=== PATIENT | female | born 1940 | race Hispanic/Latino ===

== ENCOUNTER → 2018-10-12 | Outpatient (CLI) | payer MEDICARE | END | disposition home or self-care (01) | LOC: SHCH 13:14 | PROVIDERS: ATTEND Internal Medicine Cardiovascular Disease | DX: I08.0 Rheumatic disorders of both mitral and aortic valves (principal) | CPT/HCPCS: 93306 ==

== ENCOUNTER → 2018-10-19 | Outpatient (CLI) | payer MEDICARE ==
[~2018-10-19] VITALS: Ht 152.4 cm; Wt 73.9 kg
[~2018-10-19] MED LIST: REGADENOSON 0.4 MG/5 ML PF SYG IVP SCH
== END | disposition home or self-care (01) ==
LOC: SHCH 08:17
PROVIDERS: ATTEND Internal Medicine Cardiovascular Disease
DX: I25.9 Chronic ischemic heart disease, unspecified (principal)
CPT/HCPCS: 78452; 93017; 96374; A9500 ×2; J2785

== ENCOUNTER → 2019-10-11 | Outpatient (CLI) | payer MEDICARE | END | disposition home or self-care (01) | LOC: SHCH 08:33 | PROVIDERS: ATTEND Internal Medicine Cardiovascular Disease | DX: I10 Essential (primary) hypertension (principal) | CPT/HCPCS: 93306 ==

== ENCOUNTER → 2020-04-25 | Outpatient (CLI) | payer OTHER, MEDICARE | END | disposition home or self-care (01) | LOC: RAH 09:18 | PROVIDERS: ATTEND Family Medicine | DX: N28.1 Cyst of kidney, acquired (principal); Z90.49 Acquired absence of other specified parts of digestive tract | CPT/HCPCS: 76700 ==

== ENCOUNTER → 2020-05-03 | Outpatient (CLI) | payer OTHER, MEDICARE ==
[~2020-05-03] MED LIST changes: +AMLO-258 PO; +ATOR20TA65 PO; +ISOS30TA11 PO; +LEVO25TA54 PO; +LOSA100T58 PO; +METO25 PO; -REGADENOSON 0.4 MG/5 ML PF SYG IVP SCH
== END | disposition home or self-care (01) ==
LOC: SHCH 09:32
PROVIDERS: ATTEND Internal Medicine Cardiovascular Disease
DX: R09.89 Other specified symptoms and signs involving the circulatory and respiratory systems (principal)
CPT/HCPCS: 93880

== ENCOUNTER 2020-05-04 20:40 | Observation (INO) | payer OTHER, MEDICARE ==
[~2020-05-04] VITALS: Ht 152.4 cm; Wt 69.0 kg
[2020-05-04 20:56] LABS: BASOPHILS % (AUTO) 0.4 % (0.0-5.0); EOSINOPHILS % (AUTO) 1.4 % (0.0-8.0); HEMATOCRIT 34.8 % (36-48); LYMPHOCYTES % (AUTO) 40.1 % (21.0-51.0); MEAN CORPUSCULAR HEMOGLOBIN 30.1 pg (27.0-33.0); MEAN CORPUSCULAR HGB CONC 32.8 g/dL (32.0-36.0); MEAN CORPUSCULAR VOLUME 91.8 fL (79-99); MONOCYTES % (AUTO) 8.3 % (3.0-13.0); NEUTROPHILS % (AUTO) 49.4 % (40.0-77.0); PLATELET COUNT (AUTO) 306 K/uL (130-400); RED BLOOD CELL COUNT(AUTO) 3.79 MIL/uL (4.00-5.50); RED CELL DISTRIBUTION WIDTH 12.1 % (11.0-15.5); WHITE BLOOD COUNT (AUTO) 9.3 K/uL (4.8-10.8)
[2020-05-04 21:08] LABS: POTASSIUM 3.2 mmol/L (3.5-5.1)
[2020-05-04 21:10] LABS: INR 0.9 (0.85-1.15); PARTIAL THROMBOPLASTIN TIME 23.4 SEC (26.3-35.5); PROTHROMBIN TIME 9.8 SEC (9.6-11.6)
[2020-05-04 21:12] LABS: ALBUMIN 3.8 g/dL (3.5-5.0); BILIRUBIN,TOTAL 0.2 mg/dL (0.2-1.0)
[2020-05-04 21:42] LABS: APPEARANCE,URINE Clear (CLEAR); BILIRUBIN,URINE Negative (NEGATIVE); COLOR,URINE Yellow (YELLOW); GLUCOSE, URINE (UA) Negative (NEGATIVE); KETONES,URINE Negative (NEGATIVE); LEUKOCYTE ESTERASE ,URINE Trace (NEGATIVE); NITRATE,URINE Negative (NEGATIVE); OCCULT BLOOD,URINE Small (NEGATIVE); PROTEIN,URINE Negative (NEGATIVE); UROBILINOGEN,URINE 0.2 mg/dL (0.2-1.0)
[2020-05-04 22:00] LABS: RBC,URINE 0-1 /HPF (0-1)
[2020-05-04 22:01] LABS: BACTERIA,URINE Rare /HPF (None Seen); SQUAMOUS EPITHELIAL CELL,UR Rare /HPF (0-2)
[2020-05-04] MEDS ORDERED: POTASSIUM CHLORIDE 20 MEQ ERTAB PO ONE (22:48)
[2020-05-04] MEDS ORDERED: DiphenhydrAMINE HCL 50 MG/ML VIAL IV PRN (23:15)
[2020-05-04] MEDS ORDERED: ONDANSETRON HCL 4 MG/2 ML VIAL IV PRN (23:15)
[2020-05-04] MEDS ORDERED: ZOLPIDEM TARTRATE 5 MG TAB PO PRN (23:15)
[2020-05-04] MEDS ORDERED: MAG HYDROX/AL HYDROX/SIMETH ES 30 ML SUSP UDCUP PO PRN (23:15)
[2020-05-04] MEDS ORDERED: DIPHENHYDRAMINE HCL 25 MG CAPSULE PO PRN (23:15)
[2020-05-04] MEDS ORDERED: LACTULOSE 20 GM/30 ML UDCUP PO PRN (23:15)
[2020-05-04] MEDS ORDERED: HYDRALAZINE HCL 20 MG/ML VIAL IV PRN (23:15)
[2020-05-04] MEDS ORDERED: GUAIFENESIN-DM 200/20 MG 10 ML PO PRN (23:15)
[2020-05-04] MEDS ORDERED: ACETAMINOPHEN 325 MG TAB PO PRN ×2 (23:15)
[2020-05-04] MEDS ORDERED: ACETAMINOPHEN-CODEINE 300/30MG TAB PO PRN ×2 (23:15)
[2020-05-04] MEDS ORDERED: NITROGLYCERIN 0.4 MG SL TAB SL PRN (23:15)
[2020-05-04] MEDS ORDERED: POTASSIUM CHLORIDE 20 MEQ ERTAB PO PRN (23:30)
[2020-05-04] MEDS ORDERED: LIDOCAINE HCL-MPF 1% 2ML VIAL IV PRN (23:30)
[2020-05-04] MEDS ORDERED: POTASSIUM CHLORIDE 20MEQ/100ML 100 ML IV PRN (23:30)
[2020-05-05 00:22] LABS: TROPONIN I 0.08 ng/mL (0.00-0.06)
[2020-05-05 07:21] LABS: TROPONIN I 0.07 ng/mL (0.00-0.06)
[2020-05-05] MEDS ORDERED: ENOXAPARIN SODIUM 30 MG/0.3 ML SQ ONE (07:51)
[2020-05-05] MEDS ORDERED: FAMOTIDINE/PF 20 MG/2 ML VIAL IV ONE (07:52)
[2020-05-05] MEDS ORDERED: METO25 PO (08:46)
[2020-05-05] MEDS ORDERED: AMLO-258 PO (08:46)
[2020-05-05] MEDS ORDERED: LEVO25TA54 PO (08:46)
[2020-05-05] MEDS ORDERED: LOSA100T58 PO (08:46)
[2020-05-05] MEDS ORDERED: ATOR20TA65 PO (08:46)
[2020-05-05] MEDS ORDERED: ISOS30TA11 PO (08:46)
[2020-05-05] MEDS ORDERED: FAMOTIDINE/PF 20 MG/2 ML VIAL IV SCH (09:00)
[2020-05-05] MEDS ORDERED: ENOXAPARIN SODIUM 30 MG/0.3 ML SQ SCH (09:00)
--- NOTE | 2020-05-05 09:55 | NUR ---
ADMISSION RECEIVED PT FROM ER, AMBULATING FROM [facility], GAIT STEADY AND STRONG WITH STAND BY ASSIST, PT DENIES PAIN, SOB, NAUSEA, DOES NOT APPEAR TO BE IN ANY DISTRESS NOR ANY NEURO DEFICITS PRESENT. CALL LIGHT WITHIN REACH.
[2020-05-05 09:56] VITALS: BP 133/86
[2020-05-05] MEDS: POTASSIUM CHLORIDE 10% ELIXIR 20 MEQ/15 ML UDCUP PO PRN ×3 (11:18→15:00)
[2020-05-05 12:00] VITALS: BP 144/70
[2020-05-05] MEDS ORDERED: LOSARTAN 100 MG TABLET PO SCH (12:00)
--- NOTE | 2020-05-05 15:00 | NUR ---
DISCHARGE INSTRUCTIONS GIVEN, PIV REMOVED AND INTACT,DISCHARGED HOME TO FAMILY VEHICLE VIA WHEELCHAIR.
[2020-05-05] MEDS ORDERED: METOPROLOL TARTRATE 25 MG TAB PO SCH (21:00)
[2020-05-05] MEDS ORDERED: ATORVASTATIN CALCIUM 20 MG TABLET PO SCH (21:00)
[2020-05-06] MEDS ORDERED: ISOSORBIDE MONO 30MG TAB SR PO SCH (09:00)
[2020-05-06] MEDS ORDERED: ASPIRIN 81MG TAB.CHEW PO SCH (09:00)
== END 2020-05-05 15:17 | disposition home or self-care (01) ==
LOC: EDH 20:40 → EDHIP 23:10 → 4DH 05-05 08:54
PROVIDERS: ADMIT Family Medicine; ATTEND Family Medicine
DX: R07.9 Chest pain, unspecified (principal); Z20.828 Contact with and (suspected) exposure to other viral communicable diseases; E87.6 Hypokalemia; E78.5 Hyperlipidemia, unspecified; E03.9 Hypothyroidism, unspecified; I10 Essential (primary) hypertension; D64.9 Anemia, unspecified; K59.00 Constipation, unspecified; I25.10 Atherosclerotic heart disease of native coronary artery without angina pectoris; Z95.1 Presence of aortocoronary bypass graft
CPT/HCPCS: 36415 ×2; 71045; 80053; 81001; 82550 ×3; 83605; 83735; 83874 ×2; 84100; 84484 ×3; 85025; 85610; 85730; 87040; 87426; 87804 ×2; 93005; 99285; G0378 ×14; J1650; J3490; U0003

== ENCOUNTER → 2020-10-10 | Outpatient (CLI) | payer OTHER, MEDICARE ==
[~2020-10-10] MED LIST changes: -AMLO-258 PO; -ISOS30TA11 PO
== END | disposition home or self-care (01) ==
LOC: SHCH 09:47
PROVIDERS: ATTEND Internal Medicine Cardiovascular Disease
DX: I08.3 Combined rheumatic disorders of mitral, aortic and tricuspid valves (principal); I27.20 Pulmonary hypertension, unspecified; R55 Syncope and collapse; E11.9 Type 2 diabetes mellitus without complications
CPT/HCPCS: 93306; 93356

== ENCOUNTER 2021-03-10 13:39 | Observation (INO) | payer OTHER, MEDICARE ==
[~2021-03-10] VITALS: Ht 152.4 cm; Wt 70.3 kg
[2021-03-10 14:28] LABS: ALBUMIN 3.7 g/dL (3.5-5.0); BILIRUBIN,TOTAL 0.4 mg/dL (0.2-1.0); CREATININE 0.9 mg/dL (0.5-1.5); MAGNESIUM 1.6 mg/dL (1.80-2.40); POTASSIUM 3.8 mmol/L (3.5-5.1); TOTAL PROTEIN, SERUM 7.3 g/dL (6.0-8.3)
[2021-03-10] MEDS ORDERED: ASPIRIN 325MG TAB PO ONE (14:30)
[2021-03-10] MEDS ORDERED: NITROGLYCERIN 1GM OINT 1 INCH/1GM TD ONE (14:30)
[2021-03-10] MEDS ORDERED: NITROGLYCERIN 0.4 MG SL TAB SL PRN (14:30)
[2021-03-10] MEDS ORDERED: POTASSIUM CHLORIDE 20MEQ/100ML 100 ML IV PRN ×2 (15:30)
[2021-03-10] MEDS ORDERED: POTASSIUM CHLORIDE 10% ELIXIR 20 MEQ/15 ML UDCUP PO PRN (15:30)
[2021-03-10] MEDS ORDERED: ONDANSETRON 4MG INJ IVP PRN (15:30)
[2021-03-10] MEDS ORDERED: LIDOCAINE HCL-MPF 1% 2ML VIAL IV PRN ×2 (15:30)
[2021-03-10] MEDS ORDERED: GLUCAGON 1MG KIT 1 MG ML IM PRN (15:30)
[2021-03-10] MEDS ORDERED: MAGNESIUM 2GM PREMIX 50ML 50 ML IV PRN (15:30)
[2021-03-10] MEDS ORDERED: ACETAMINOPHEN 325 MG TAB PO PRN (15:30)
[2021-03-10] MEDS ORDERED: MORPHINE 2 MG SYG IVP PRN (15:30)
[2021-03-10] MEDS ORDERED: DEXTROSE 50%-WATER 50 ML DISP.SYRIN IV PRN (15:30)
[2021-03-10] MEDS: NITROGLYCERIN 1GM OINT 1 INCH/1GM TD SCH ×2 (15:30→22:58)
[2021-03-10 16:16] LABS: HEMATOCRIT 32.6 % (36-48); MEAN CORPUSCULAR HEMOGLOBIN 28.5 pg (27.0-33.0); MEAN CORPUSCULAR HGB CONC 32.5 g/dL (32.0-36.0); MEAN CORPUSCULAR VOLUME 87.6 fL (79-99); RED BLOOD CELL COUNT(AUTO) 3.72 MIL/uL (4.00-5.50); RED CELL DISTRIBUTION WIDTH 13.2 % (11.0-15.5); WHITE BLOOD COUNT (AUTO) 10.1 K/uL (4.8-10.8)
[2021-03-10] MEDS: FAMOTIDINE 20MG VIAL IV SCH (16:20)
[2021-03-10 16:30] LABS: HEMOGLOBIN A1C 6.1 % (4.0-6.0)
[2021-03-10] MEDS: INSULIN HUMULIN R 100 UNIT/ML 3ML SQ SCH ×2 (16:30→21:00)
[2021-03-10 17:11] VITALS: BP 140/55
[2021-03-10] MEDS ORDERED: METF-444 PO (19:31)
[2021-03-10] MEDS ORDERED: AMLO-257 PO (19:31)
[2021-03-10] MEDS ORDERED: ASPI-1005 PO (19:31)
[2021-03-10 20:22] VITALS: BP 136/52
[2021-03-10] MEDS ORDERED: ATORVASTATIN 40 MG TABLET PO SCH (21:00)
[2021-03-10] MEDS: ENOXAPARIN SODIUM 80 MG/0.8 ML SQ SCH (21:22)
[2021-03-10] MEDS: METOPROLOL TARTRATE 25 MG TAB PO SCH (21:22)
[2021-03-10 23:50] VITALS: BP 145/61
[2021-03-11 02:26] LABS: HEMATOCRIT 31.7 % (36-48); MEAN CORPUSCULAR HEMOGLOBIN 28.6 pg (27.0-33.0); MEAN CORPUSCULAR HGB CONC 32.8 g/dL (32.0-36.0); MEAN CORPUSCULAR VOLUME 87.1 fL (79-99); RED BLOOD CELL COUNT(AUTO) 3.64 MIL/uL (4.00-5.50); RED CELL DISTRIBUTION WIDTH 13.1 % (11.0-15.5); WHITE BLOOD COUNT (AUTO) 8.5 K/uL (4.8-10.8)
[2021-03-11 02:53] LABS: ALBUMIN 3.6 g/dL (3.5-5.0); BILIRUBIN,TOTAL 0.4 mg/dL (0.2-1.0); CREATININE 0.6 mg/dL (0.5-1.5); POTASSIUM 3.4 mmol/L (3.5-5.1); TOTAL PROTEIN, SERUM 7.2 g/dL (6.0-8.3)
[2021-03-11 03:55] VITALS: BP 139/62
[2021-03-11] MEDS: INSULIN HUMULIN R 100 UNIT/ML 3ML SQ SCH ×2 (05:49→11:30)
[2021-03-11 08:00] VITALS: BP 148/68
[2021-03-11] MEDS ORDERED: ASPIRIN 81 MG EC TAB PO SCH (09:00)
[2021-03-11] MEDS: METOPROLOL TARTRATE 25 MG TAB PO SCH (09:58)
[2021-03-11] MEDS: KCL 20 MEQ ERTAB PO PRN ×2 (09:58→15:28)
[2021-03-11] MEDS: NITROGLYCERIN 1GM OINT 1 INCH/1GM TD SCH (09:58)
[2021-03-11] MEDS: FAMOTIDINE 20MG VIAL IV SCH (09:58)
[2021-03-11] MEDS: ENOXAPARIN SODIUM 80 MG/0.8 ML SQ SCH (09:59)
[2021-03-11 11:30] VITALS: BP 146/71
[2021-03-11] MEDS ORDERED: METOPROLOL TARTRATE 25 MG TAB PO SCH (21:00)
== END 2021-03-11 15:30 | disposition home or self-care (01) ==
LOC: EDH 13:39 → EDHIP 15:22 → 4CH 16:46
PROVIDERS: ADMIT Internal Medicine Critical Care Medicine; ATTEND Internal Medicine Critical Care Medicine
DX: R07.89 Other chest pain (principal); I25.110 Atherosclerotic heart disease of native coronary artery with unstable angina pectoris; I24.9 Acute ischemic heart disease, unspecified; I35.0 Nonrheumatic aortic (valve) stenosis; E11.9 Type 2 diabetes mellitus without complications; I10 Essential (primary) hypertension; F41.9 Anxiety disorder, unspecified; E78.5 Hyperlipidemia, unspecified; E89.0 Postprocedural hypothyroidism; E66.9 Obesity, unspecified; E78.00 Pure hypercholesterolemia, unspecified; Z68.30 Body mass index [BMI] 30.0-30.9, adult; Z79.899 Other long term (current) drug therapy; Z95.1 Presence of aortocoronary bypass graft; Z79.82 Long term (current) use of aspirin; Z79.84 Long term (current) use of oral hypoglycemic drugs
CPT/HCPCS: 36415 ×2; 71045; 80053 ×2; 80061; 82948 ×4; 83036; 83735 ×2; 83880; 84443; 84484 ×3; 85027 ×2; 85378; 86140; 93005; 96365; 96372 ×2; 96375; 96376; 99285; G0378 ×24; J1650 ×2; J3475; J3490 ×2; 96374

== ENCOUNTER 2021-05-08 23:11 | Inpatient (IN) | payer OTHER, MEDICARE ==
[~2021-05-08] VITALS: Ht 157.5 cm; Wt 67.9 kg
[~2021-05-08 23:11] MED LIST changes: +AMLO-257 PO; +ASPI-1005 PO; +METF-444 PO
[2021-05-08 23:50] LABS: ABG OXYGEN SATURATION 32.8 % (95.0-99.0); BASE EXCESS,VENOUS BLOOD GAS 0.1 (-2.0-3.0); HCO3,VENOUS BLOOD GAS 24.4 (21.0-28.0); PCO2,VENOUS BLOOD GAS 39 (32-45); PH,VENOUS BLOOD GAS 7.418 (7.350-7.450)
[2021-05-09] MEDS ORDERED: KETOROLAC 15MG/ML VIAL (15MG/ML) IV ONE
[2021-05-09] MEDS ORDERED: 0.9% NACL 500ML IV.SOLN 456 ML IV ONE
[2021-05-09 00:17] LABS: CREATININE 0.8 mg/dL (0.5-1.5); POTASSIUM 3.7 mmol/L (3.5-5.1)
[2021-05-09 00:22] LABS: ALBUMIN 3.9 g/dL (3.5-5.0); BILIRUBIN,TOTAL 0.5 mg/dL (0.2-1.0)
[2021-05-09 00:35] LABS: BASOPHILS % (AUTO) 0.4 % (0.0-5.0); EOSINOPHILS % (AUTO) 0.2 % (0.0-8.0); HEMATOCRIT 32.2 % (36-48); LYMPHOCYTES % (AUTO) 6.5 % (21.0-51.0); MEAN CORPUSCULAR HGB CONC 33.2 g/dL (32.0-36.0); MEAN CORPUSCULAR VOLUME 87.3 fL (79-99); NEUTROPHILS % (AUTO) 86.6 % (40.0-77.0); PLATELET COUNT (AUTO) 291 K/uL (130-400); RED BLOOD CELL COUNT(AUTO) 3.69 MIL/uL (4.00-5.50); RED CELL DISTRIBUTION WIDTH 13.5 % (11.0-15.5); WHITE BLOOD COUNT (AUTO) 10.3 K/uL (4.8-10.8)
[2021-05-09 01:08] LABS: APPEARANCE,URINE Clear (CLEAR); BILIRUBIN,URINE Negative (NEGATIVE); COLOR,URINE Yellow (YELLOW); GLUCOSE, URINE (UA) Negative (NEGATIVE); KETONES,URINE 15 mg/dL (NEGATIVE); LEUKOCYTE ESTERASE ,URINE Negative (NEGATIVE); NITRATE,URINE Negative (NEGATIVE); OCCULT BLOOD,URINE Moderate (NEGATIVE); PH,URINE 5.5 (5.0-8.0); PROTEIN,URINE POS 1+ mg/dL (NEGATIVE); UROBILINOGEN,URINE 0.2 mg/dL (0.2-1.0)
[2021-05-09 01:29] LABS: BACTERIA,URINE None Seen /HPF (None Seen); YEAST,URINE BUDDING Few /HPF (None Seen)
[2021-05-09 01:30] LABS: SQUAMOUS EPITHELIAL CELL,UR Few /HPF (0-2)
[2021-05-09] MEDS ORDERED: ZOSYN 3.375GM +NS 50ML IV ONE (02:00)
[2021-05-09] MEDS ORDERED: HYDRALAZINE 20MG/ML VIAL IV PRN (02:30)
[2021-05-09] MEDS ORDERED: NITROGLYCERIN 0.4 MG SL TAB SL PRN (02:30)
[2021-05-09] MEDS ORDERED: ACETAMINOPHEN WITH CODEINE 1 TAB TAB PO PRN (02:30)
[2021-05-09] MEDS ORDERED: ONDANSETRON 4MG INJ IV PRN (02:30)
[2021-05-09] MEDS ORDERED: ACETAMINOPHEN 325 MG TAB PO PRN ×2 (02:30)
[2021-05-09] MEDS ORDERED: GUAIFENESIN-DM 200/20 MG 10 ML PO PRN (02:30)
[2021-05-09] MEDS ORDERED: DIPHENHYDRAMINE HCL 25 MG CAPSULE PO PRN (02:30)
[2021-05-09] MEDS: 0.9%NACL 1000ML 1,000 ML IV SCH ×3 (02:39→23:49)
[2021-05-09] MEDS ORDERED: ZOSYN 3.375GM+NS 50ML 50 ML IV SCH (05:00)
[2021-05-09] MEDS: INSULIN HUMULIN R 100 UNIT/ML 3ML SQ SCH ×4 (07:29→20:30)
[2021-05-09] MEDS: ENOXAPARIN SODIUM 30 MG/0.3 ML SQ SCH (09:37)
[2021-05-09] MEDS: ZOSYN 3.375GM +NS 50ML IV SCH ×2 (12:56→20:30)
[2021-05-09] MEDS: AMLODIPINE 5 MG TAB PO SCH (13:12)
[2021-05-09] MEDS: LOSARTAN 100 MG TABLET PO SCH (13:13)
[2021-05-09] MEDS: ASPIRIN 81MG CHEW TAB PO SCH (13:59)
[2021-05-09] MEDS ORDERED: 0.9%NACL 100ML 100 ML ONE (20:24)
[2021-05-09] MEDS: METOPROLOL TARTRATE 25 MG TAB PO SCH (20:30)
[2021-05-09] MEDS: ATORVASTATIN 20 MG TABLET PO SCH (20:30)
[2021-05-10] MEDS: ZOSYN 3.375GM +NS 50ML IV SCH ×3 (05:05→20:44)
[2021-05-10 05:36] LABS: BASOPHILS % (AUTO) 0.5 % (0.0-5.0); EOSINOPHILS % (AUTO) 0.5 % (0.0-8.0); HEMATOCRIT 31.1 % (36-48); LYMPHOCYTES % (AUTO) 22.4 % (21.0-51.0); MEAN CORPUSCULAR HEMOGLOBIN 28.3 pg (27.0-33.0); MEAN CORPUSCULAR HGB CONC 32.8 g/dL (32.0-36.0); MEAN CORPUSCULAR VOLUME 86.1 fL (79-99); MONOCYTES % (AUTO) 12.6 % (3.0-13.0); NEUTROPHILS % (AUTO) 63.5 % (40.0-77.0); PLATELET COUNT (AUTO) 238 K/uL (130-400); RED BLOOD CELL COUNT(AUTO) 3.61 MIL/uL (4.00-5.50); RED CELL DISTRIBUTION WIDTH 13.6 % (11.0-15.5); WHITE BLOOD COUNT (AUTO) 5.9 K/uL (4.8-10.8)
[2021-05-10 05:44] LABS: CREATININE 0.8 mg/dL (0.5-1.5); POTASSIUM 2.9 mmol/L (3.5-5.1)
[2021-05-10 05:55] LABS: B-TYPE NATRIURETIC PEPTIDE 81 pg/mL (0-100)
[2021-05-10] MEDS ORDERED: POTASSIUM CHLORIDE 10% ELIXIR 20 MEQ/15 ML UDCUP PO PRN (06:30)
[2021-05-10] MEDS ORDERED: MAGNESIUM 2GM PREMIX 50ML 50 ML IV PRN (06:30)
[2021-05-10] MEDS ORDERED: LIDOCAINE HCL-MPF 1% 2ML VIAL IV PRN (06:30)
[2021-05-10] MEDS: INSULIN HUMULIN R 100 UNIT/ML 3ML SQ SCH ×4 (07:30→20:09)
[2021-05-10 07:52] VITALS: BP 129/61
[2021-05-10] MEDS: POTASSIUM CHLORIDE 20MEQ/100ML 100 ML IV PRN ×2 (07:57→13:05)
[2021-05-10] MEDS: 0.9%NACL 1000ML 1,000 ML IV SCH ×2 (08:30→18:08)
[2021-05-10] MEDS: AMLODIPINE 5 MG TAB PO SCH (09:00)
[2021-05-10] MEDS: LOSARTAN 100 MG TABLET PO SCH (09:00)
[2021-05-10] MEDS: ASPIRIN 81MG CHEW TAB PO SCH (09:00)
[2021-05-10] MEDS: METOPROLOL TARTRATE 25 MG TAB PO SCH ×2 (09:00→20:44)
[2021-05-10 12:00] VITALS: BP 119/66
[2021-05-10] MEDS ORDERED: REGADENOSON 0.4 MG/5 ML PF SYG IVP SCH (12:00)
[2021-05-10 17:00] VITALS: BP 151/73
[2021-05-10] MEDS: ENOXAPARIN SODIUM 30 MG/0.3 ML SQ SCH (17:06)
[2021-05-10] MEDS: KCL 20 MEQ ERTAB PO PRN ×2 (17:56→20:45)
[2021-05-10 20:23] VITALS: BP 139/63
[2021-05-10] MEDS: ATORVASTATIN 20 MG TABLET PO SCH (20:44)
[2021-05-11 00:13] VITALS: BP 125/43
[2021-05-11 04:39] VITALS: BP 120/54
[2021-05-11] MEDS: ZOSYN 3.375GM +NS 50ML IV SCH ×3 (05:26→20:39)
[2021-05-11] MEDS: 0.9%NACL 1000ML 1,000 ML IV SCH ×2 (05:26→14:30)
[2021-05-11 05:45] LABS: HEMATOCRIT 33.2 % (36-48); MEAN CORPUSCULAR HEMOGLOBIN 27.8 pg (27.0-33.0); MEAN CORPUSCULAR VOLUME 89.5 fL (79-99); PLATELET COUNT (AUTO) 263 K/uL (130-400); RED BLOOD CELL COUNT(AUTO) 3.71 MIL/uL (4.00-5.50); RED CELL DISTRIBUTION WIDTH 13.7 % (11.0-15.5); WHITE BLOOD COUNT (AUTO) 5.5 K/uL (4.8-10.8)
[2021-05-11 06:11] LABS: CREATININE 0.7 mg/dL (0.5-1.5); POTASSIUM 3.7 mmol/L (3.5-5.1)
[2021-05-11] MEDS: INSULIN HUMULIN R 100 UNIT/ML 3ML SQ SCH ×4 (06:45→20:16)
[2021-05-11 07:40] VITALS: BP 111/60
[2021-05-11] MEDS: ASPIRIN 81MG CHEW TAB PO SCH (09:58)
[2021-05-11] MEDS: AMLODIPINE 5 MG TAB PO SCH (09:59)
[2021-05-11] MEDS: LOSARTAN 100 MG TABLET PO SCH (09:59)
[2021-05-11] MEDS: METOPROLOL TARTRATE 25 MG TAB PO SCH ×2 (09:59→20:39)
[2021-05-11] MEDS: ENOXAPARIN SODIUM 30 MG/0.3 ML SQ SCH (10:01)
[2021-05-11 11:45] VITALS: BP 131/62
[2021-05-11] MEDS: KCL 20 MEQ ERTAB PO PRN (13:53)
[2021-05-11 16:04] VITALS: BP 127/63
[2021-05-11 20:00] VITALS: BP 148/63
[2021-05-11] MEDS: ATORVASTATIN 20 MG TABLET PO SCH (20:39)
[2021-05-12] VITALS: BP 117/60
[2021-05-12] MEDS: 0.9%NACL 1000ML 1,000 ML IV SCH ×2 (01:12→12:50)
[2021-05-12 04:00] VITALS: BP 102/61
[2021-05-12] MEDS: ZOSYN 3.375GM +NS 50ML IV SCH ×2 (05:01→12:49)
[2021-05-12 05:37] LABS: HEMATOCRIT 28.7 % (36-48); MEAN CORPUSCULAR HEMOGLOBIN 27.8 pg (27.0-33.0); MEAN CORPUSCULAR HGB CONC 31.7 g/dL (32.0-36.0); MEAN CORPUSCULAR VOLUME 87.8 fL (79-99); RED BLOOD CELL COUNT(AUTO) 3.27 MIL/uL (4.00-5.50); RED CELL DISTRIBUTION WIDTH 13.7 % (11.0-15.5); WHITE BLOOD COUNT (AUTO) 4.4 K/uL (4.8-10.8)
[2021-05-12 05:46] LABS: CREATININE 0.6 mg/dL (0.5-1.5); POTASSIUM 3.6 mmol/L (3.5-5.1)
[2021-05-12] MEDS: INSULIN HUMULIN R 100 UNIT/ML 3ML SQ SCH ×3 (07:07→16:30)
[2021-05-12 08:00] VITALS: BP 172/76
[2021-05-12] MEDS: AMLODIPINE 5 MG TAB PO SCH (10:11)
[2021-05-12] MEDS: ASPIRIN 81MG CHEW TAB PO SCH (10:11)
[2021-05-12] MEDS: LOSARTAN 100 MG TABLET PO SCH (10:11)
[2021-05-12] MEDS: METOPROLOL TARTRATE 25 MG TAB PO SCH (10:11)
[2021-05-12] MEDS: ENOXAPARIN SODIUM 30 MG/0.3 ML SQ SCH (10:13)
[2021-05-12] MEDS: KCL 20 MEQ ERTAB PO PRN (10:19)
[2021-05-12 13:05] VITALS: BP 147/62
[2021-05-12] MEDS ORDERED: AMOX-426 PO (15:34)
[2021-05-12] MEDS ORDERED: PERID15L MM (15:35)
[2021-05-12 17:35] VITALS: BP 147/63
== END 2021-05-12 20:30 | disposition home or self-care (01) | DRG 872 ==
LOC: EDH 23:11 → EDHIP 05-09 02:14 → OBSVTOIN 05-09 02:14 → 3DH 05-10 05:38
PROVIDERS: ADMIT Internal Medicine; ATTEND Internal Medicine
DX: A41.9 Sepsis, unspecified organism (principal); N39.0 Urinary tract infection, site not specified; K04.7 Periapical abscess without sinus; I35.0 Nonrheumatic aortic (valve) stenosis; I10 Essential (primary) hypertension; E78.5 Hyperlipidemia, unspecified; E66.9 Obesity, unspecified; Z20.822 Contact with and (suspected) exposure to COVID-19; E11.9 Type 2 diabetes mellitus without complications; I25.10 Atherosclerotic heart disease of native coronary artery without angina pectoris; Z60.2 Problems related to living alone; K00.7 Teething syndrome; E78.00 Pure hypercholesterolemia, unspecified; R68.84 Jaw pain; M54.2 Cervicalgia; Z68.27 Body mass index [BMI] 27.0-27.9, adult; Z95.1 Presence of aortocoronary bypass graft; Z79.82 Long term (current) use of aspirin; Z79.84 Long term (current) use of oral hypoglycemic drugs; Z79.899 Other long term (current) drug therapy; Z82.49 Family history of ischemic heart disease and other diseases of the circulatory system
CPT/HCPCS: 36415; 36600; 70486; 71045; 74176; 78452; 80048; 80053; 81001; 82010; 82550; 82803; 82948; 83605; 83690; 83874; 83880; 84484; 85025; 85027; 87040; 87088; 87635; 87804; 93005; 93017; 93306; 93356; 96374; A9500; C9803; G0378; J1650; J1815; J1885; J2543; J2785; J3480; J3490; J7030; J7040

== ENCOUNTER 2021-10-16 11:05 | Emergency (ER) | payer OTHER, MEDICARE ==
[~2021-10-16] VITALS: Ht 152.4 cm; Wt 63.5 kg
[~2021-10-16 11:05] MED LIST changes: +AMOX-426 PO; -LEVO25TA54 PO; +PERID15L MM
[2021-10-16 11:33] LABS: BASOPHILS % (AUTO) 0.8 % (0.0-5.0); EOSINOPHILS % (AUTO) 0.8 % (0.0-8.0); HEMATOCRIT 29.4 % (36-48); LYMPHOCYTES % (AUTO) 19.4 % (21.0-51.0); MEAN CORPUSCULAR HEMOGLOBIN 22.6 pg (27.0-33.0); MEAN CORPUSCULAR HGB CONC 29.6 g/dL (32.0-36.0); MEAN CORPUSCULAR VOLUME 76.4 fL (79-99); MONOCYTES % (AUTO) 7.9 % (3.0-13.0); NEUTROPHILS % (AUTO) 70.7 % (40.0-77.0); PLATELET COUNT (AUTO) 339 K/uL (130-400); RED BLOOD CELL COUNT(AUTO) 3.85 MIL/uL (4.00-5.50); RED CELL DISTRIBUTION WIDTH 15.9 % (11.0-15.5); WHITE BLOOD COUNT (AUTO) 7.4 K/uL (4.8-10.8)
[2021-10-16 12:25] LABS: ALBUMIN 3.4 g/dL (3.5-5.0); BILIRUBIN,TOTAL 0.4 mg/dL (0.2-1.0); CREATININE 0.7 mg/dL (0.5-1.5); POTASSIUM 3.7 mmol/L (3.5-5.1); TOTAL PROTEIN, SERUM 6.6 g/dL (6.0-8.3)
[2021-10-16 12:27] LABS: APPEARANCE,URINE Clear (CLEAR); BILIRUBIN,URINE Negative (NEGATIVE); COLOR,URINE Yellow (YELLOW); GLUCOSE, URINE (UA) Negative (NEGATIVE); KETONES,URINE Negative (NEGATIVE); LEUKOCYTE ESTERASE ,URINE Trace (NEGATIVE); NITRATE,URINE Negative (NEGATIVE); OCCULT BLOOD,URINE Negative (NEGATIVE); PH,URINE 6.5 (5.0-8.0); PROTEIN,URINE Negative (NEGATIVE); UROBILINOGEN,URINE 0.2 mg/dL (0.2-1.0)
[2021-10-16 12:49] LABS: BACTERIA,URINE Few /HPF (None Seen); RBC,URINE None Seen /HPF (0-1); SQUAMOUS EPITHELIAL CELL,UR 0-2 /HPF (0-2); WBC,URINE 0-1 /HPF (0-1)
[2021-10-16 13:56] VITALS: BP 165/78
== END 2021-10-16 13:58 | disposition home or self-care (01) ==
LOC: EDH 11:05
DX: R53.1 Weakness (principal); D64.9 Anemia, unspecified; E11.9 Type 2 diabetes mellitus without complications; E78.00 Pure hypercholesterolemia, unspecified; I10 Essential (primary) hypertension; Z79.82 Long term (current) use of aspirin; Z90.89 Acquired absence of other organs; Z79.899 Other long term (current) drug therapy; Z79.84 Long term (current) use of oral hypoglycemic drugs; Z90.49 Acquired absence of other specified parts of digestive tract; Z98.890 Other specified postprocedural states
CPT/HCPCS: 36415; 80053; 81001; 84484; 85025; 93005

== ENCOUNTER → 2022-12-11 | Outpatient (CLI) | payer OTHER, MEDICARE ==
[~2022-12-11] MED LIST changes: -LOSA100T58 PO; +LOSA100T59 PO
== END | disposition home or self-care (01) ==
LOC: SHCH 08:23
PROVIDERS: ATTEND Internal Medicine Cardiovascular Disease
DX: I08.0 Rheumatic disorders of both mitral and aortic valves (principal); I11.9 Hypertensive heart disease without heart failure; E11.9 Type 2 diabetes mellitus without complications; E78.5 Hyperlipidemia, unspecified; Z95.1 Presence of aortocoronary bypass graft
CPT/HCPCS: 93306

== ENCOUNTER → 2023-04-23 | Outpatient (CLI) | payer OTHER, MEDICARE ==
[2023-04-23 12:47] LABS: BASOPHILS # (AUTO) 0.06 K/uL (0.00-0.20); BASOPHILS % (AUTO) 0.8 % (0.0-5.0); EOSINOPHILS # (AUTO) 0.09 K/uL (0.00-0.70); EOSINOPHILS % (AUTO) 1.3 % (0.0-8.0); HEMATOCRIT 38.7 % (36-48); IMMATURE GRANULOCYTE ABSOLUTE 0.04 K/uL (0-1); LYMPHOCYTES # (AUTO) 2.5 K/uL (1.0-4.8); LYMPHOCYTES % (AUTO) 34.7 % (21.0-51.0); MEAN CORPUSCULAR HEMOGLOBIN 31.1 pg (27.0-33.0); MEAN CORPUSCULAR HGB CONC 32.8 g/dL (32.0-36.0); MEAN CORPUSCULAR VOLUME 94.6 fL (79-99); MONOCYTES # (AUTO) 0.7 K/uL (0.1-1.0); MONOCYTES % (AUTO) 9.6 % (3.0-13.0); NEUTROPHILS # (AUTO) 3.7 K/uL (1.8-7.7); PLATELET COUNT (AUTO) 288 K/uL (130-400); RED BLOOD CELL COUNT(AUTO) 4.09 MIL/uL (4.00-5.50); RED CELL DISTRIBUTION WIDTH 11.6 % (11.0-15.5); WHITE BLOOD COUNT (AUTO) 7.1 K/uL (4.8-10.8)
[2023-04-23 13:16] LABS: ALBUMIN 3.7 g/dL (3.5-5.0); BILIRUBIN,TOTAL 0.6 mg/dL (0.2-1.0); CREATININE 0.7 mg/dL (0.5-1.5); POTASSIUM 3.8 mmol/L (3.5-5.1); T4 (THYROXINE) 8.7 ug/dL (4.7-13.3); THYROID STIMULATING HORMONE 6.22 uIU/mL (0.36-3.74); TOTAL PROTEIN, SERUM 7.6 g/dL (6.0-8.3)
== END | disposition home or self-care (01) ==
LOC: LAB 04-22 10:44
PROVIDERS: ATTEND Internal Medicine Cardiovascular Disease
DX: I10 Essential (primary) hypertension (principal); E78.5 Hyperlipidemia, unspecified
CPT/HCPCS: 36415; 80053; 80061; 83880; 84436; 84443; 84479; 85025

== ENCOUNTER → 2023-05-22 | Outpatient (CLI) | payer OTHER, MEDICARE | END | disposition home or self-care (01) | LOC: SHCH 11:06 | PROVIDERS: ATTEND Internal Medicine Cardiovascular Disease | DX: I35.0 Nonrheumatic aortic (valve) stenosis (principal); I10 Essential (primary) hypertension; E78.5 Hyperlipidemia, unspecified; E11.9 Type 2 diabetes mellitus without complications; Z79.899 Other long term (current) drug therapy | CPT/HCPCS: 93880 ==

== ENCOUNTER → 2024-01-26 | Outpatient (CLI) | payer OTHER, MEDICARE | END | disposition home or self-care (01) | LOC: SHCH 13:04 | PROVIDERS: ATTEND Internal Medicine Cardiovascular Disease | DX: I25.10 Atherosclerotic heart disease of native coronary artery without angina pectoris (principal) | CPT/HCPCS: 93306 ==

== ENCOUNTER 2025-05-01 19:46 | Emergency (ER) | payer OTHER, MEDICAID ==
[~2025-05-01] VITALS: Ht 152.4 cm; Wt 68.0 kg
[~2025-05-01 19:46] MED LIST changes: +LEVO25CA5 PO; -LOSA100T59 PO; +NITR0.4T50 SL; +SPIR25TA6 PO; +TELM80TA10 PO
--- NOTE | 2025-05-01 19:50 | NUR ---
UA CUP PROVIDED
--- NOTE | 2025-05-01 20:01 | NUR ---
REPORT TO ROSETTA TIPTON ENP.
[2025-05-01 20:07] LABS: IMMATURE GRANULOCYTE ABSOLUTE 0.03 K/uL (0-1); NUCLEATED RED BLOOD CELLS 0.0 % (0.0-0.19); PLATELET COUNT (AUTO) 262 K/uL (130-400); RED BLOOD CELL COUNT(AUTO) 3.45 MIL/uL (4.00-5.50); RED CELL DISTRIBUTION WIDTH 12.6 % (11.0-15.5); WHITE BLOOD COUNT (AUTO) 8.9 K/uL (4.8-10.8)
--- NOTE | 2025-05-01 20:08 | NUR ---
UA COLLECTED AND SENT
[2025-05-01 20:14] LABS: CREATININE 0.9 mg/dL (0.5-1.0); GLOMERULAR FILTR. RATE CALC 63.0 mL/min (>90); GLUCOSE,RANDOM 140.0 mg/dL (70-105); SODIUM SERUM 132.0 mmol/L (136-145); UREA NITROGEN, BLOOD 18.0 mg/dL (7-18)
[2025-05-01 20:25] LABS: APPEARANCE,URINE CLOUDY (CLEAR); GLUCOSE, URINE (UA) NEGATIVE (NEGATIVE); LEUKOCYTE ESTERASE ,URINE 500 Leu/uL (NEGATIVE); NITRATE,URINE NEGATIVE (NEGATIVE); OCCULT BLOOD,URINE SMALL (NEGATIVE)
[2025-05-01 20:27] LABS: ADD UA MICROSCOPIC YES
[2025-05-01 20:32] LABS: SQUAMOUS EPITHELIAL CELL,UR FEW /HPF (0-2); WBC CLUMP MANY /HPF (0-1)
[2025-05-01 21:35] VITALS: BP 155/52; PULSE 72; RESP 16; TEMP 98.2; O2SAT 99
[2025-05-01] MEDS ORDERED: CEPH500T PO (21:35)
--- NOTE | 2025-05-01 21:36 | ERN ---
ED Note History of Present Illness Stated Complaint: BURNING UA, BM AFTER EVERY MEAL. DIZZINESS Chief Complaint: Multiple Complaints Time Seen by MD: 19:55 Time Seen by Midlevel: 19:56 Dictation: 83-year-old female presents to the emergency department due to reported having some chills. She states that the onset of the symptoms was 1 week ago. The patient reports having some burning and painful urination. At this time, there is no report of any nausea, vomiting, abdominal pain, flank pain or suprapubic pain. The patient states that she believes that she might be having a urinary tract infection. Upon initial evaluation, the patient presents in no acute distress. Allergies: Coded Allergies: No Known Drug Allergies (Unverified Allergy, Unknown, 03/28/17) Emergency Care TECHNICAL SERVICES SPECIALIST: None Home Meds Active Scripts Telmisartan (Telmisartan) 80 Mg Tablet, 1 TAB PO DAILY for 30 Days, #30 TAB 0 Refills Prov:ALBERTO LYLE PARALEGAL SECRETARY 04/01/24 Spironolactone (Spironolactone) 25 Mg Tablet, 25 MG PO DAILY, #30 TAB Prov:ALBERTO LYLE PARALEGAL SECRETARY 04/01/24 Chlorhexidine Gluconate (Peridex Oral Rinse) 15 Ml Mwsh, 10 ML MM TIDAC for 10 Days, #300 ML Prov:AIMEE MEI AGACNP 05/12/21 Amoxicillin/Potassium Clav (Augmentin 500-125 Tablet) 1 Each Tablet, 1 EACH PO BID for 14 Days, #28 TAB Prov[facility] 05/12/21 Reported Medications Spironolactone (Spironolactone) 25 Mg Tablet, 1 TAB PO DAILY for 30 Days, #30 TAB 0 Refills 04/01/24 Telmisartan (Telmisartan) 80 Mg Tablet, 1 TAB PO DAILY for 30 Days, #30 TAB 0 Refills 04/01/24 Nitroglycerin (Nitroglycerin) 0.4 Mg Tab.subl, 1 TAB SL AD for chest pain, #25 TAB 0 Refills 1st sign of attack; may repeat every 5 mins; if pain persists after 3 in 15 min, medical attention is recommended 03/29/24 Levothyroxine Sodium (Levothyroxine) 25 Mcg Capsule, 1 CAP PO DAILY for 30 Days, #30 CAP 0 Refills 03/29/24 Aspirin (ASPIRIN 81MG CHEW TAB) 81 Mg Tab.chew, 81 MG PO DAILY, TAB.CHEW 03/10/21 Amlodipine Besylate (Amlodipine Besylate) 5 Mg Tablet, 5 MG PO AM, TAB 03/10/21 Metformin HCl (Metformin HCl) 500 Mg Tablet, 500 MG PO AM, TAB 03/10/21 Atorvastatin Calcium (Atorvastatin Calcium) 20 Mg Tablet, 1 TAB PO HS 05/05/20 Metoprolol Tartrate (Lopressor) 25 Mg Tab, 1 TAB PO BID 05/05/20 Past Medical History Past Medical History: Diabetes-Type II, High Cholesterol, Heart Disease, Hypertension Additional Past Medical Hx: HEART MURMUR. THYROID Surgical History: Appendectomy, Cholecystectomy, CABG Surgical History Other: THYROID Family History: HTN Social History: Negative, Lives with family, Other : 11 Para: 10 RN Note Reviewed/Agreed w/PFSH: Yes Review of System Dictation Constitutional: Chills : Dysuria Initial Vital Sign VS Vital Signs Date Time Temp Pulse Resp B/P (MAP) Pulse Ox O2 Delivery O2 Flow Rate FiO2 05/01/25 19:48 97.9 78 16 133/56 96 Room Air Physical Exam Dictation General: awake, alert, NAD Head/Face: Normocephalic, atraumatic Eyes: PERRL, EOMI ENT: Oral mucosa moist Neck: Trachea midline, supple Cardiovascular: RRR, no edema Respiratory: Symmetrical, non-labored Abdomen: Soft, non-tender, non-distended, no guarding. Skin: Warm, dry, good turgor, no rash MS/Extremity: Pulses equal, no cyanosis, neurovascular intact, FROM Neuro: COAx4, GCS 15, steady gait, Psych: Normal behavior, mood, and affect normal Results (Laboratory/Radiology) Laboratory/Radiology Laboratory Tests Test 05/01/25 20:00 05/01/25 20:08 White Blood Count 8.9 K/uL (4.8-10.8) Red Blood Count 3.45 MIL/uL (4.00-5.50) L Hemoglobin 10.8 g/dL (12.0-16.0) L Hematocrit 32.5 % (36-48) L Mean Corpuscular Volume 94.2 fL (79-99) Mean Corpuscular Hemoglobin 31.3 pg (27.0-33.0) Mean Corpuscular Hemoglobin Concent 33.2 g/dL (32.0-36.0) Red Cell Distribution Width 12.6 % (11.0-15.5) Platelet Count 262 K/uL (130-400) Mean Platelet Volume 9.0 fL (7.5-10.5) Immature Granulocyte % (Auto) 0.3 % (0-1) Neutrophils (%) (Auto) 54.4 % (40.0-77.0) Lymphocytes (%) (Auto) 35.3 % (21.0-51.0) Monocytes (%) (Auto) 7.5 % (3.0-13.0) Eosinophils (%) (Auto) 1.8 % (0.0-8.0) Basophils (%) (Auto) 0.7 % (0.0-5.0) Neutrophils # (Auto) 4.8 K/uL (1.8-7.7) Lymphocytes # (Auto) 3.1 K/uL (1.0-4.8) Monocytes # (Auto) 0.7 K/uL (0.1-1.0) Eosinophils # (Auto) 0.16 K/uL (0.00-0.70) Basophils # (Auto) 0.06 K/uL (0.00-0.20) Absolute Immature Granulocyte (auto 0.03 K/uL (0-1) Nucleated Red Blood Cells 0.0 % (0.0-0.19) Sodium Level 132 mmol/L (136-145) L Potassium Level 3.8 mmol/L (3.5-5.1) Chloride Level 98 mmol/L (101-111) L Carbon Dioxide Level 24 mmol/L (21-32) Blood Urea Nitrogen 18 mg/dL (7-18) Creatinine 0.9 mg/dL (0.5-1.0) Glomerular Filtration Rate Calc 63 mL/min (>90) Random Glucose 140 mg/dL (70-105) H Total Calcium 9.1 mg/dL (8.5-10.1) Urine Color YELLOW (YELLOW) Urine Appearance CLOUDY (CLEAR) H Urine pH 5.5 (5.0-8.0) Urine Specific [place] 1.016 (1.001-1.031) Urine Protein 10 mg/dL (NEGATIVE) H Urine Glucose (UA) NEGATIVE mg/dL (NEGATIVE) Urine Ketones NEGATIVE mg/dL (NEGATIVE) Urine Occult Blood SMALL (NEGATIVE) H Urine Nitrate NEGATIVE (NEGATIVE) Urine Bilirubin NEGATIVE mg/dL (NEGATIVE) Urine Urobilinogen 0.2 mg/dL (0.2-1.0) Urine Leukocyte Esterase 500 Amie/uL (NEGATIVE) H Urine RBC 6-10 /HPF (0-1) H Urine WBC TNTC /HPF (0-1) H Urine WBC Clumps (Auto) MANY /HPF (0-1) Urine Squamous Epithelial Cells FEW /HPF (0-2) Urine Transitional Epithelial Cells RARE /HPF (None Seen) Urine Bacteria MANY /HPF (None Seen) Labs Reviewed?: Yes ED Course ED Course Orders Procedure Category Date Status Time Urinalysis Profile LAB 05/01/25 Complete 19:51 Cbc With Differential LAB 05/01/25 Complete 19:51 Basic Metabolic Panel LAB 05/01/25 Complete 19:51 Culture Urine PRIYANK 05/01/25 In Process 20:27 Vital Signs Date Time Temp Pulse Resp B/P (MAP) Pulse Ox O2 Delivery O2 Flow Rate FiO2 05/01/25 19:48 97.9 78 16 133/56 96 Room Air Medical Decision Making MDM MDM: Differential diagnosis: Acute UTI, acute cystitis, acute pyelonephritis. Rationale: Tests considered and ordered secondary to shared decision making include: Previous outside records reviewed: Old ER visits. Risk of complication and/or morbidity or mortality of patient management: None Medications-Per medication reconciliation Need for hospitalization: Patient does not meet criteria for hospitalization. Need for emergency major/minor surgery: No There are no social concerns with this patient. Prescription drug management Prescriptions will include symptomatic care Patient's prior external medical records from other ER visits were reviewed by me as indicated. Prior testing and results from previous visits were reviewed. Prior tests were taken into account with medical decision making and resource utilization, independent historian/historians were used to obtain complete medical history. I independently interpreted the test that were performed, results were reviewed by me and considered findings on radiology if ordered. Medical management and examination interpretation discussions were had by me with other qualified healthcare professionals as indicated for the patient's care. DX & DISP Disposition: Discharge Departure Impression: Primary Impression: Acute UTI Condition: Stable Scripts Cephalexin (Cephalexin) 500 Mg Tablet 1 TAB PO BID for 5 Days, #10 TAB 0 Refills Prov: ROSETTA TIPTON 05/01/25 Referrals: TOBY DICKENS MD (PCP) Time of Disposition: 21:35 ROSETTA TIPTON May 01, 2025 21:36
== END 2025-05-01 21:43 | disposition home or self-care (01) ==
LOC: EDH 19:46
DX: N39.0 Urinary tract infection, site not specified (principal); E11.9 Type 2 diabetes mellitus without complications; E78.00 Pure hypercholesterolemia, unspecified; I11.9 Hypertensive heart disease without heart failure; Z79.899 Other long term (current) drug therapy; Z79.82 Long term (current) use of aspirin; Z79.890 Hormone replacement therapy; Z90.49 Acquired absence of other specified parts of digestive tract; Z95.1 Presence of aortocoronary bypass graft
CPT/HCPCS: 36415; 80048; 81001; 85025; 87086; 87186; 99283

== ENCOUNTER 2025-05-15 18:46 | Emergency (ER) | payer OTHER, MEDICAID ==
[~2025-05-15] VITALS: Ht 157.5 cm; Wt 68.0 kg
--- NOTE | 2025-05-15 18:58 | ERN ---
ED Note History of Present Illness Stated Complaint: GBW/ DIZZY/ DIARRHEA Chief Complaint: Diarrhea Time Seen by MD: 18:54 Dictation: PATIENT IS A 84-YEAR-OLD FEMALE WITH HER SON WITH COMPLAINTS PER THE SON OF DIARRHEA WITH THE ABDOMINAL CRAMPING FOR THE LAST 3-4 WEEKS. IN ADDITION SHE STARTED HAVING INTERMITTENT CHEST PAIN AND GENERALIZED BODY WEAKNESS OVER THE SAME AMOUNT OF TIME. NO FEVER NO CHILLS NO NAUSEA VOMITING. SHE IS AFEBRILE IN TRIAGE. SHE IS ALERT ORIENTED TIMES 3-4 SPEECH IS CLEAR. Allergies: Coded Allergies: No Known Drug Allergies (Unverified Allergy, Unknown, 03/28/17) Home Meds Active Scripts Cephalexin (Cephalexin) 500 Mg Tablet, 1 TAB PO BID for 5 Days, #10 TAB 0 Refills Prov:ROSETTA TIPTON FREIGHT ELEVATOR OPERATOR 05/01/25 Telmisartan (Telmisartan) 80 Mg Tablet, 1 TAB PO DAILY for 30 Days, #30 TAB 0 Refills Prov:ALBERTO LYLE FREIGHT ELEVATOR OPERATOR 04/01/24 Spironolactone (Spironolactone) 25 Mg Tablet, 25 MG PO DAILY, #30 TAB Prov:ALBERTO LYLE FREIGHT ELEVATOR OPERATOR 04/01/24 Chlorhexidine Gluconate (Peridex Oral Rinse) 15 Ml Mwsh, 10 ML MM TIDAC for 10 Days, #300 ML [facility] 05/12/21 Amoxicillin/Potassium Clav (Augmentin 500-125 Tablet) 1 Each Tablet, 1 EACH PO BID for 14 Days, #28 TAB Prov:AIMEE MEI [facility] 05/12/21 Reported Medications Spironolactone (Spironolactone) 25 Mg Tablet, 1 TAB PO DAILY for 30 Days, #30 TAB 0 Refills 04/01/24 Telmisartan (Telmisartan) 80 Mg Tablet, 1 TAB PO DAILY for 30 Days, #30 TAB 0 Refills 04/01/24 Nitroglycerin (Nitroglycerin) 0.4 Mg Tab.subl, 1 TAB SL AD for chest pain, #25 TAB 0 Refills 1st sign of attack; may repeat every 5 mins; if pain persists after 3 in 15 min, medical attention is recommended 03/29/24 Levothyroxine Sodium (Levothyroxine) 25 Mcg Capsule, 1 CAP PO DAILY for 30 Days, #30 CAP 0 Refills 03/29/24 Aspirin (ASPIRIN 81MG CHEW TAB) 81 Mg Tab.chew, 81 MG PO DAILY, TAB.CHEW 03/10/21 Amlodipine Besylate (Amlodipine Besylate) 5 Mg Tablet, 5 MG PO AM, TAB 03/10/21 Metformin HCl (Metformin HCl) 500 Mg Tablet, 500 MG PO AM, TAB 03/10/21 Atorvastatin Calcium (Atorvastatin Calcium) 20 Mg Tablet, 1 TAB PO HS 05/05/20 Metoprolol Tartrate (Lopressor) 25 Mg Tab, 1 TAB PO BID 05/05/20 Past Medical History Past Medical History: CHF, Diabetes-Type II, High Cholesterol, Heart Disease, Hypertension, Hypothyroid Additional Past Medical Hx: HEART MURMUR. THYROID Surgical History: Appendectomy, Cholecystectomy, CABG Surgical History Other: THYROID Family History: HTN Social History: Negative, Lives with family, Other History: Not Applicable : 11 Para: 10 RN Note Reviewed/Agreed w/PFSH: Yes Review of System Dictation CONSTITUTIONAL: NEGATIVE EXCEPT FOR HPI HEAD/FACE: NEGATIVE EXCEPT FOR HPI EENT: NEGATIVE EXCEPT FOR HPI RESPIRATORY: NEGATIVE EXCEPT FOR HPI CHEST PAIN GASTROINTESTINAL/ABDOMINAL: NEGATIVE EXCEPT FOR HPI ABDOMINAL PAIN CRAMPING WITH DIARRHEA GENITOURINARY: NEGATIVE EXCEPT FOR HPI MUSCULOSKELETAL: NEGATIVE EXCEPT FOR HPI INTEGUMENTARY: NEGATIVE EXCEPT FOR HPI NEUROLOGICAL/PSYCH: NEGATIVE EXCEPT FOR HPI HEMATOLOGIC/LYMPHATIC: NEGATIVE EXCEPT FOR HPI ALL SYSTEMS NEGATIVE, EXCEPT NOTED ABOVE. 13 POINT REVIEW OF SYSTEMS ASSESSED AND ALL NEGATIVE EXCEPT FOR ABOVE. Initial Vital Sign VS Vital Signs Date Time Temp Pulse Resp B/P (MAP) Pulse Ox O2 Delivery O2 Flow Rate FiO2 05/15/25 18:50 98.4 70 18 175/71 98 Room Air 0 05/15/25 19:41 21 Physical Exam Dictation VITAL SIGNS REVIEWED GENERAL APPEARANCE: ALERT, ORIENTED X 3, ACUTE DISTRESS, WELL DEVELOPED, NOURISHED. HEAD AND FACE: NON-TRAUMATIC. EYES: PERRL, PINK CONJUNCTIVAS, EYELID NO TRAUMA, ANTERIOR CHAMBER WITH ARCUS SENILIS. EARS: PINNAS INTACT AND NO SIGNS OF TRAUMA OR ERYTHEMA EAR CANALS CLEAR AND NO DISCHARGE TM NO ERYTHEMA NOSE: NO DISCHARGE, NO BLEEDING. OROPHARYNX: MOUTH NORMAL, TONGUE PINK, PHARYNX CLEAR,NO ERYTHEMA, TONSILS NO EXUDATES, NO ABSCESSES NOTED, MUCOUS MEMBRANE MOIST NECK: SUPPLE, NON-TENDER, NO THYROMEGALY, NO MASSES, NO JVD, NO BRUITS BREAST:DEFERRED CHEST:NO TENDERNESS, NO CREPITUS, NO PARADOXICAL MOVEMENT, NO RETRACTIONS LUNGS:CLEAR, WELL-VENTILATED, SYMMETRIC, NO RALES, NO WHEEZING, NO RHONCHI, NO STRIDOR, GOOD BREATH SOUNDS BILATERALLY HEART: REGULAR RATE, REGULAR RHYTHM, NO MURMUR, NO GALLOPS VASCULAR: NO PERIPHERAL EDEMA, ABDOMEN: SOFT, POSITIVE BOWEL SOUNDS, NONDISTENDED, NO GUARDING, MILD EPIGASTRIC TENDERNESS WITH PALPATION NO REBOUND, NO MASSES NO HEPATOMEGALY, NO SPLENOMEGALY, NO NESBITT'S SIGN, NO HERNIAS. RECTAL: DEFERRED GENITAL: DEFERRED NEUROLOGICAL: NORMAL SPEECH, MOTOR FUNCTION INTACT, SENSORY FUNCTION INTACT MUSCULOSKELETAL: NECK NONTENDER, FULL RANGE OF MOTION, BACK NONTENDER, FULL RANGE OF MOTION, EXTREMITIES: NONTENDER, FULL RANGE OF MOTION SKIN: COLOR PINK, DRY, NO TURGOR, NO RASH, NO LACERATIONS, NO ABRASIONS, NO CONTUSIONS. LYMPHATIC: DEFERRED Results (Laboratory/Radiology) Laboratory/Radiology Laboratory Tests Test 05/15/25 19:25 05/15/25 19:54 White Blood Count 7.0 K/uL (4.8-10.8) Red Blood Count 3.30 MIL/uL (4.00-5.50) L Hemoglobin 10.6 g/dL (12.0-16.0) L Hematocrit 31.8 % (36-48) L Mean Corpuscular Volume 96.4 fL (79-99) Mean Corpuscular Hemoglobin 32.1 pg (27.0-33.0) Mean Corpuscular Hemoglobin Concent 33.3 g/dL (32.0-36.0) Red Cell Distribution Width 12.7 % (11.0-15.5) Platelet Count 187 K/uL (130-400) Mean Platelet Volume 11.0 fL (7.5-10.5) H Immature Granulocyte % (Auto) 0.6 % (0-1) Neutrophils (%) (Auto) 73.2 % (40.0-77.0) Lymphocytes (%) (Auto) 16.6 % (21.0-51.0) L Monocytes (%) (Auto) 8.0 % (3.0-13.0) Eosinophils (%) (Auto) 0.9 % (0.0-8.0) Basophils (%) (Auto) 0.7 % (0.0-5.0) Neutrophils # (Auto) 5.1 K/uL (1.8-7.7) Lymphocytes # (Auto) 1.2 K/uL (1.0-4.8) Monocytes # (Auto) 0.6 K/uL (0.1-1.0) Eosinophils # (Auto) 0.06 K/uL (0.00-0.70) Basophils # (Auto) 0.05 K/uL (0.00-0.20) Absolute Immature Granulocyte (auto 0.04 K/uL (0-1) Nucleated Red Blood Cells 0.0 % (0.0-0.19) Sodium Level 137 mmol/L (136-145) Potassium Level 4.5 mmol/L (3.5-5.1) Chloride Level 100 mmol/L (101-111) L Carbon Dioxide Level 26 mmol/L (21-32) Blood Urea Nitrogen 13 mg/dL (7-18) Creatinine 0.8 mg/dL (0.5-1.0) Glomerular Filtration Rate Calc 72 mL/min (>90) Random Glucose 125 mg/dL (70-105) H Total Calcium 9.6 mg/dL (8.5-10.1) Magnesium Level 1.80 mg/dL (1.80-2.40) Troponin I High Sensitivity 13 ng/L (4-50) Lipase 36 U/L (16-77) Urine Color COLORLESS (YELLOW) Urine Appearance CLEAR (CLEAR) Urine pH 5.5 (5.0-8.0) Urine Specific [place] 1.004 (1.001-1.031) Urine Protein NEGATIVE mg/dL (NEGATIVE) Urine Glucose (UA) NEGATIVE mg/dL (NEGATIVE) Urine Ketones NEGATIVE mg/dL (NEGATIVE) Urine Occult Blood SMALL (NEGATIVE) H Urine Nitrate NEGATIVE (NEGATIVE) Urine Bilirubin NEGATIVE mg/dL (NEGATIVE) Urine Urobilinogen 0.2 mg/dL (0.2-1.0) Urine Leukocyte Esterase 250 Amie/uL (NEGATIVE) H Urine RBC 2-5 /HPF (0-1) H Urine WBC 11-25 /HPF (0-1) H Urine Squamous Epithelial Cells RARE /HPF (0-2) Urine Bacteria RARE /HPF (None Seen) Labs Reviewed?: Yes EKG: (+) NSR EKG Comment: 1858/EKG NORMAL SINUS RHYTHM/HEART RATE 74/AXIS NORMAL/NO ECTOPY ED Course ED Course Orders Procedure Category Date Status Time Cbc With Differential LAB 05/15/25 Complete 18:56 Chest 1vw RAD 05/15/25 Resulted 18:56 12 Lead Ekg Tracing- EKG 05/15/25 Complete Technical 18:56 0.9%Nacl 1000ml (Ns PHA 05/15/25 Complete 1000ml) 19:00 Magnesium LAB 05/15/25 Complete 18:56 Troponin I High LAB 05/15/25 Complete Sensitivity 18:56 Urinalysis Profile LAB 05/15/25 Complete 18:56 Lipase LAB 05/15/25 Complete 18:56 Basic Metabolic Panel LAB 05/15/25 Complete 20:24 Culture Urine PRIYANK 05/15/25 In Process 20:54 Ceftriaxone 1g Vial PHA 05/15/25 In Process (Rocephine 1g Inj) 21:30 Current Medications Medications (Trade) Dose Ordered Sig/[place] Route PRN Reason Start Time Stop Time Status Last Admin Dose Admin Ceftriaxone Sodium (ROCEphine 1G INJ) 1 gm ONCE ONCE IVPB 05/15/25 21:30 05/15/25 21:31 Sodium Chloride 1,000 ml @ 0 mls/hr ONCE ONCE IV 05/15/25 19:00 05/15/25 19:07 DC 05/15/25 19:38 Vital Signs Date Time Temp Pulse Resp B/P (MAP) Pulse Ox O2 Delivery O2 Flow Rate FiO2 05/15/25 19:41 98.4 74 18 172/59 97 Room Air* 0 21 05/15/25 18:50 98.4 70 18 175/71 98 Room Air 0 2130/PATIENT AND HER SON AT BEDSIDE WERE MADE AWARE THE PATIENT HAS A CHRONIC ANEMIA, URINARY TRACT INFECTION, MILD DEHYDRATION. THERE HAS BEEN NO CARDIAC EVENT PATIENT IS HEMODYNAMICALLY STABLE WE WILL BE DISCHARGED HOME AFTER ROCEPHIN TO FOLLOW UP WITH HER DOCTOR AT [facility] Response (Comments) Value History: Low suspicion (0) 0 Age: > 65yrs (+2) 2 Risk Factors: 1-2 risk factors (+1) 1 Initial Troponin: Normal limit (0) 0 Total 3 Medical Decision Making MDM MDM: DIFFERENTIAL DIAGNOSIS: ACS/AMI/ELECTROLYTE IMBALANCE/DEHYDRATION/UTI/PNEUMONIA/BRONCHITIS RATIONALE: TESTS CONSIDERED AND ORDERED SECONDARY TO SHARED DECISION MAKING INCLUDE: LABS/EKG/RADIOLOGY PREVIOUS OUTSIDE RECORDS REVIEWED: OLD ER VISITS. RISK OF COMPLICATION AND/OR MORBIDITY OR MORTALITY OF PATIENT MANAGEMENT: NONE MEDICATIONS-PER MEDICATION RECONCILIATION NEED FOR HOSPITALIZATION: PATIENT DOES NOT MEET CRITERIA FOR HOSPITALIZATION. NONE NEED FOR EMERGENCY MAJOR/MINOR SURGERY: NO THERE ARE NO SOCIAL CONCERNS WITH THIS PATIENT. PRESCRIPTION DRUG MANAGEMENT AUGMENTIN PRESCRIPTIONS WILL INCLUDE SYMPTOMATIC CARE PATIENT'S PRIOR EXTERNAL MEDICAL RECORDS FROM OTHER ER VISITS WERE REVIEWED BY ME INDICATED. PRIOR TESTING AND RESULTS FROM PREVIOUS VISITS WERE REVIEWED. PRIOR TESTS WERE TAKEN INTO ACCOUNT WITH MEDICAL DECISION MAKING AND RESOURCE UTILIZATION, INDEPENDENT HISTORIAN/HISTORIANS WERE USED TO OBTAIN COMPLETE MEDICAL HISTORY. I INDEPENDENTLY INTERPRETED THE TEST THAT WERE PERFORMED, RESULTS WERE REVIEWED BY ME AND CONSIDERED FINDINGS ON RADIOLOGY IF ORDERED. MEDICAL MANAGEMENT AND EXAMINATION INTERPRETATION DISCUSSIONS WERE HAD BY ME WITH OTHER QUALIFIED HEALTHCARE PROFESSIONALS INDICATED FOR THE PATIENT'S CARE. DX & DISP Disposition: Discharge Departure Impression: Primary Impression: Acute UTI Additional Impressions: Mild dehydration, Atypical chest pain, Chronic ane toan Condition: Stable Scripts Amoxicillin/Potassium Clav (Amox Tr-K Clv 875-125 mg Tab) 875 Mg-125 Mg Tablet 1 EACH PO BID for 5 Days, #10 TAB 0 Refills Prov: SALOME KRUGER [facility] 05/15/25 Additional Instructions: FOLLOW-UP WITH PRIMARY CARE PROVIDER IN 1 TO 2 DAYS. TAKE MEDICATIONS DIRECTED HERE IN THE EMERGENCY ROOM. OKAY TO CONTINUE HOME MEDICATIONS UNLESS OTHERWISE DISCUSSED DURING YOUR VISIT IN THE EMERGENCY ROOM TODAY. RETURN TO YOUR NEAREST EMERGENCY ROOM IF SYMPTOMS WORSEN OR IF THERE IS NO IMPROVEMENT. CALL 911 IF YOU NEED IMMEDIATE ASSISTANCE. TAKE TYLENOL OR MOTRIN [id number] NEEDED AND IF NO CONTRAINDICATIONS ARE PRESENT. INCREASE ORAL HYDRATION. A WOUND CULTURE OR URINE CULTURE WAS ORDERED HERE IN THE EMERGENCY ROOM DEPARTMENT PLEASE FOLLOW-UP WITH PRIMARY CARE PROVIDER AND ADVISE THEM TO GET REPEAT PORTS FROM OUR FACILITY. IF YOU HAD ANY RIMA WRAP/SPLINTS THAT WERE APPLIED HERE, PLEASE DO NOT REMOVE THEM UNTIL YOU SEE YOUR PRIMARY CARE OR SPECIALTY. TAKE ANTIBIOTICS DIRECTED UNTIL GONE. INCREASE YOUR WATER INTAKE. SEE YOUR PRIMARY CARE DOCTOR AT [facility] NEXT 2-3 DAYS FOR EVALUATION AND TREATMENT. Referrals: TOBY DICKENS MD (PCP) Time of Disposition: 21:32 I have reviewed the case, and I agree with, Diagnosis and Plan SALOME KRUGER [facility] May 15, 2025 18:58
--- NOTE | 2025-05-15 19:07 | EKG ---
[facility] Test Date: 2025-05-15 Test Time: 18:58:52 Pat Name: DEYSI GROVER Department: ED Room: Gender: F Firestop/Containment Worker: [id number] : [id number] Requested By: SALOME KRUGER Order Number: [id number] Reading MD: Yvan Coelho Measurements Intervals [place] Rate: 74 P: 0 UT: 82 QRS: -24 QRSD: 93 T: 43 QT: 384 QTc: 427 Interpretive Statements Sinus rhythm Compared to ECG 03/30/2024 08:46:40 Sinus bradycardia no longer present Sinus arrhythmia no longer present Myocardial infarct finding no longer present Electronically Signed On 05-16-2025 13:16:23 MALT HOUSE SUPERVISOR by Yvan Coehlo Please click the below link to view image of tracing.
[2025-05-15] MEDS: 0.9%NACL 1000ML 1,000 ML IV ONE (19:38)
--- NOTE | 2025-05-15 19:46 | HMCIMG ---
EXAM: CR Chest, 1 View. CLINICAL HISTORY: CHEST PAIN COMPARISON: None provided. FINDINGS: LUNGS: There is no mass, infiltrate, or acute pulmonary abnormality. PLEURAL SPACES: No pleural effusion or pneumothorax. MEDIASTINUM: Prior sternotomy. The cardiomediastinal silhouette is within normal limits. BONES: No aggressive appearing osseous lesion seen. IMPRESSION: No acute cardiopulmonary pathology is evident. /[place]
[2025-05-15 19:56] LABS: IMMATURE GRANULOCYTE ABSOLUTE 0.04 K/uL (0-1); NUCLEATED RED BLOOD CELLS 0.0 % (0.0-0.19); PLATELET COUNT (AUTO) 187 K/uL (130-400); RED BLOOD CELL COUNT(AUTO) 3.30 MIL/uL (4.00-5.50); RED CELL DISTRIBUTION WIDTH 12.7 % (11.0-15.5); WHITE BLOOD COUNT (AUTO) 7.0 K/uL (4.8-10.8)
[2025-05-15 20:46] LABS: APPEARANCE,URINE CLEAR (CLEAR); GLUCOSE, URINE (UA) NEGATIVE (NEGATIVE); LEUKOCYTE ESTERASE ,URINE 250 Leu/uL (NEGATIVE); NITRATE,URINE NEGATIVE (NEGATIVE); OCCULT BLOOD,URINE SMALL (NEGATIVE)
[2025-05-15 20:53] LABS: ADD UA MICROSCOPIC YES
[2025-05-15 20:54] LABS: CREATININE 0.8 mg/dL (0.5-1.0); GLOMERULAR FILTR. RATE CALC 72.0 mL/min (>90); GLUCOSE,RANDOM 125.0 mg/dL (70-105); SODIUM SERUM 137.0 mmol/L (136-145); UREA NITROGEN, BLOOD 13.0 mg/dL (7-18)
[2025-05-15 21:02] LABS: SQUAMOUS EPITHELIAL CELL,UR RARE /HPF (0-2)
[2025-05-15 22:25] VITALS: BP 145/59; PULSE 68; RESP 18; TEMP 98.5; O2SAT 97
== END 2025-05-15 22:28 | disposition home or self-care (01) ==
LOC: EDH 18:46
DX: N39.0 Urinary tract infection, site not specified (principal); D64.9 Anemia, unspecified; E86.0 Dehydration; R07.89 Other chest pain; E03.9 Hypothyroidism, unspecified; E11.9 Type 2 diabetes mellitus without complications; E78.00 Pure hypercholesterolemia, unspecified; I11.0 Hypertensive heart disease with heart failure; Z79.82 Long term (current) use of aspirin; Z79.890 Hormone replacement therapy; Z79.899 Other long term (current) drug therapy; Z90.49 Acquired absence of other specified parts of digestive tract; Z95.1 Presence of aortocoronary bypass graft
CPT/HCPCS: 99285; 96374; 71045; 83735; 84484; 80048; 83690; 85025; 87086; 81001; 36415; 93005; J7030; J0696